=== PATIENT | male | born 1960 | race African-American/Black ===

== ENCOUNTER 2023-08-23 17:35 | Emergency (ER) | payer MEDICARE ==
[~2023-08-23] VITALS: Ht 180.3 cm; Wt 101.0 kg
[2023-08-23 17:38] VITALS: O2SAT 98
[2023-08-23] MEDS ORDERED: KETOROLAC 15MG/ML VIAL IV ONE (18:15)
[2023-08-23] MEDS ORDERED: METOCLOPRAMIDE HCL 10MG/2ML VIAL IV ONE (18:15)
[2023-08-23] MEDS ORDERED: DIPHENHYDRAMINE 50MG/ML VIAL IV ONE (18:15)
[2023-08-23 18:45] LABS: BASOPHILS % 0.7 % (0.0-2.0); EOSINOPHILS % 0.5 % (0.0-5.0); HEMATOCRIT. 40.2 % (42.0-52.0); HEMOGLOBIN. 13.8 g/dL (14.0-18.0); LYMPHOCYTES % 16.7 % (20.0-50.0); MEAN CORPUSCULAR HEMOGLOBIN 30.3 pg (28.0-32.0); MEAN CORPUSCULAR HGB CONC 34.2 g/dL (31.0-37.0); MEAN CORPUSCULAR VOLUME 88.5 fL (80.0-94.0); MEAN PLATELET VOLUME 8.9 fl (7.4-10.4); MONOCYTES % 8.3 % (2.0-8.0); NEUTROPHILS % 73.8 % (40.0-76.0); PLATELET 262 x1000/uL (130-400); RED BLOOD CELL COUNT 4.55 mill/uL (4.7-6.1); RED CELL DISTRIBUTION WIDTH 13.1 % (11.6-14.6); WHITE BLOOD COUNT 9.5 x1000/uL (4.5-11.0)
[2023-08-23 18:49] LABS: CHLORIDE 103 mEq/L (98-107); POTASSIUM 4.1 mEq/L (3.5-5.1); SODIUM 137 mEq/L (136-145)
[2023-08-23 18:50] LABS: CARBON DIOXIDE 28 mEq/L (21-32)
[2023-08-23 18:51] LABS: CALCIUM 9.6 mg/dL (8.7-10.4)
[2023-08-23 18:55] LABS: CREATININE 1.1 mg/dL (0.6-1.3); GLUCOSE 107 mg/dL (70-105)
[2023-08-23 18:56] LABS: UREA NITROGEN BLOOD 10 mg/dL (9-23)
[2023-08-23 18:57] LABS: ALANINE AMINOTRANSFERASE 13 IU/L (10-49); ALBUMIN 4.4 g/dL (3.2-4.8); ASPARTATE AMINOTRANSFERASE 18 IU/L (<34)
[2023-08-23 18:58] LABS: BILIRUBIN TOTAL 0.9 mg/dL (0.1-1.0); PROTEIN TOTAL 7.7 g/dL (6.0-8.3)
[2023-08-23] MEDS: DIPHENHYDRAMINE 50MG/ML VIAL IV NR (21:02)
[2023-08-23] MEDS: METOCLOPRAMIDE HCL 10MG/2ML VIAL IV NR (21:03)
[2023-08-23 21:04] VITALS: TEMP 98.2
[2023-08-23] MEDS: SODIUM CHLORIDE 0.9% 1,000 ML IV ONE (21:04)
[2023-08-23] MEDS: KETOROLAC 15MG/ML VIAL IV NR (21:04)
[2023-08-23] MEDS ORDERED: IBUP-2029 MT (22:08)
[2023-08-23 22:25] VITALS: BP 138/87; PULSE 73; RESP 12
== END 2023-08-23 22:28 | disposition home or self-care (01) ==
LOC: ER 17:35
DX: R51.9 Headache, unspecified (principal); N20.0 Calculus of kidney
CPT/HCPCS: 99285; 70450; 96374; 96375; 96361; 80053; 85025; 36415; 74176; J1200; J1885; J2765; J7030